=== PATIENT | male | born 1950 | race Two or more races ===

== ENCOUNTER 2019-01-13 21:45 | Inpatient (IN) | payer MEDICARE, MEDICAID ==
[~2019-01-13] VITALS: Ht 177.8 cm; Wt 74.4 kg
[2019-01-13 23:00] VITALS: BP 100/59
[2019-01-13] MEDS ORDERED: HYDROCODONE/APAP 5/325MG 1 EACH TABLET PO PRN (23:00)
[2019-01-13] MEDS ORDERED: MAGNESIUM HYDROXIDE 30 ML UDC PO PRN (23:00)
[2019-01-13] MEDS ORDERED: ACETAMINOPHEN 325 MG TABLET PO PRN (23:00)
[2019-01-13] MEDS ORDERED: ZOLPIDEM TARTRATE 5 MG TABLET PO PRN (23:00)
[2019-01-13] MEDS ORDERED: Z GUARD REMEDY 2 OZ OINT TP PRN (23:00)
[2019-01-13] MEDS ORDERED: ONDANSETRON HCL/PF 4 MG/2 ML VIAL IVP PRN (23:00)
[2019-01-13] MEDS ORDERED: MAG HYDROX/AL HYDROX/SIMETH 30 ML UDC PO PRN (23:00)
[2019-01-13] MEDS: CEFTRIAXONE 1 G in IV D5W 50 ML IV SCH (23:00)
[2019-01-13] MEDS: ENOXAPARIN SODIUM 30 MG/0.3 ML DISP.SYRIN SQ SCH (23:46)
[2019-01-13] MEDS: IV D5/0.45 NACL 1,000 ML IV PRN (23:46)
[2019-01-14] VITALS (7 sets, daily range): BP systolic 100–121; BP diastolic 59–80
[2019-01-14 06:41] LABS: BASOPHILS % (AUTO) 0.5 % (0.0-2.0); EOSINOPHILS % (AUTO) 6.5 % (0.0-6.0); HEMATOCRIT 38 % (39-51); HEMOGLOBIN 12.9 g/dL (13.5-17.5); LYMPHOCYTES # (AUTO) 1.5 /CMM (0.8-4.8); LYMPHOCYTES % (AUTO) 26.9 % (20.0-44.0); MEAN CORPUSCULAR HGB CONC 34 g/dl (31.0-36.0); MEAN CORPUSCULAR VOLUME 84 fL (80-96); MONOCYTES # (AUTO) 0.4 /CMM (0.1-1.30); NEUTROPHILS # (AUTO) 3.2 /CMM (1.8-8.9); NEUTROPHILS % (AUTO) 58.1 % (43.0-81.0); PLATELET COUNT (AUTO) 193 /CMM (150-450); RED BLOOD CELL COUNT(AUTO) 4.56 MIL/uL (4.5-6.0); WHITE BLOOD COUNT (AUTO) 5.5 K/uL (4.3-11.0)
[2019-01-14 06:42] LABS: CALCIUM, SERUM 7.4 mg/dL (8.5-10.1); CREATININE 1.1 mg/dL (0.6-1.3); MAGNESIUM 1.8 mg/dL (1.8-2.4); PHOSPHORUS 3.6 mg/dL (2.5-4.9); POTASSIUM 3.2 mmol/L (3.5-5.1)
[2019-01-14 06:59] LABS: THYROID STIMULATING HORMONE 0.66 uIU/mL (0.358-3.74)
[2019-01-14] MEDS: ASPIRIN 81 MG TAB.CHEW PO SCH (08:42)
[2019-01-14] MEDS ORDERED: POTASSIUM CHLORIDE 10 MEQ TABLET.SA PO ONE (10:00)
[2019-01-14] MEDS: IV D5/0.45 NACL 1,000 ML IV PRN (12:04)
[2019-01-14] MEDS: SIMVASTATIN 20 MG TABLET PO SCH (21:05)
[2019-01-14] MEDS: CEFTRIAXONE 1 G in IV D5W 50 ML IV SCH (22:18)
[2019-01-14] MEDS: ENOXAPARIN SODIUM 30 MG/0.3 ML DISP.SYRIN SQ SCH (22:20)
[2019-01-15] MEDS: IV D5/0.45 NACL 1,000 ML IV PRN ×2 (02:36→20:22)
[2019-01-15 06:35] LABS: BASOPHILS % (AUTO) 0.4 % (0.0-2.0); EOSINOPHILS % (AUTO) 4.3 % (0.0-6.0); HEMATOCRIT 43 % (39-51); HEMOGLOBIN 14.3 g/dL (13.5-17.5); LYMPHOCYTES # (AUTO) 1.5 /CMM (0.8-4.8); LYMPHOCYTES % (AUTO) 18.1 % (20.0-44.0); MEAN CORPUSCULAR HGB CONC 33 g/dl (31.0-36.0); MEAN CORPUSCULAR VOLUME 85 fL (80-96); MONOCYTES # (AUTO) 0.6 /CMM (0.1-1.30); MONOCYTES % (AUTO) 7.8 % (2.0-12.0); NEUTROPHILS # (AUTO) 5.6 /CMM (1.8-8.9); NEUTROPHILS % (AUTO) 69.4 % (43.0-81.0); PLATELET COUNT (AUTO) 209 /CMM (150-450); RED BLOOD CELL COUNT(AUTO) 5.11 MIL/uL (4.5-6.0); WHITE BLOOD COUNT (AUTO) 8.1 K/uL (4.3-11.0)
[2019-01-15 06:46] LABS: CALCIUM, SERUM 7.9 mg/dL (8.5-10.1); CREATININE 1.2 mg/dL (0.6-1.3); POTASSIUM 3.7 mmol/L (3.5-5.1)
[2019-01-15 08:00] VITALS: BP 104/60
[2019-01-15] MEDS: ASPIRIN 81 MG TAB.CHEW PO SCH (08:52)
[2019-01-15] MEDS ORDERED: IVERMECTIN 3 MG TABLET PO ONE (09:00)
[2019-01-15 16:00] VITALS: BP 130/81
[2019-01-15 20:00] VITALS: BP 133/75
[2019-01-15 20:19] VITALS: BP 133/75
[2019-01-15] MEDS: SIMVASTATIN 20 MG TABLET PO SCH (21:18)
[2019-01-15] MEDS: CEFTRIAXONE 1 G in IV D5W 50 ML IV SCH (22:00)
[2019-01-15] MEDS: ENOXAPARIN SODIUM 30 MG/0.3 ML DISP.SYRIN SQ SCH (22:02)
[2019-01-16 08:00] VITALS: BP 142/88
[2019-01-16] MEDS: ASPIRIN 81 MG TAB.CHEW PO SCH (08:32)
== END 2019-01-16 16:00 | disposition home or self-care (01) | DRG 689 ==
LOC: TELE 22:49 → MED 01-14 10:10
PROVIDERS: ADMIT Student in an Organized Health Care Education/Training Program; ATTEND Nurse Practitioner Acute Care
DX: N39.0 Urinary tract infection, site not specified (principal); G93.41 Metabolic encephalopathy; B86 Scabies; E78.5 Hyperlipidemia, unspecified; N18.3 Chronic kidney disease, stage 3 (moderate); Z87.442 Personal history of urinary calculi; Z59.0 Homelessness; N40.0 Benign prostatic hyperplasia without lower urinary tract symptoms; G31.9 Degenerative disease of nervous system, unspecified; N20.0 Calculus of kidney; I70.0 Atherosclerosis of aorta; R73.03 Prediabetes; K64.8 Other hemorrhoids; K63.5 Polyp of colon; R27.0 Ataxia, unspecified; R33.9 Retention of urine, unspecified; E87.6 Hypokalemia; F17.200 Nicotine dependence, unspecified, uncomplicated; F44.9 Dissociative and conversion disorder, unspecified; I69.322 Dysarthria following cerebral infarction
CPT/HCPCS: 36415; 80048-TC; 80061-TC; 83735-TC; 84100-TC; 84443-TC; 85025-TC; 87081-TC; 87086-TC; 92526; 92611-TC; 97116-TC; 97530-TC; 97535-TC; G0378; J0696; J1650; J3490; J7060